=== PATIENT | female | born 1990 | race Two or more races ===

== ENCOUNTER 2023-06-23 00:23 | Emergency (ER) | payer BC ==
[~2023-06-23] VITALS: Ht 160 cm; Wt 59.0 kg
[2023-06-23] MEDS ORDERED: PRENATAL + DHA1 EAC1 (00:39)
[2023-06-23 04:42] LABS: HEMATOCRIT 35.4 % (36.0-45.00); HEMOGLOBIN 12.5 g/dL (12.0-15.00); MEAN CELL VOLUME 91.2 fL (80.00-100.00); MEAN CORPUSCULAR HEMOGLOBIN 32.4 pg (27.00-32.0); MEAN CORPUSCULAR HGB CONC 35.5 g/dl (32.0-36.0); PLATELET COUNT 223 K/uL (150-450); RED BLOOD COUNT 3.87 M/uL (4.00-6.00); RED CELL DISTRIBUTION WIDTH 13.3 % (11.5-14.5)
== END 2023-06-23 05:15 | disposition home or self-care (01) ==
LOC: ER 00:24
DX: J03.90 Acute tonsillitis, unspecified (principal)